=== PATIENT | female | born 1995 | race Hispanic/Latino ===

== ENCOUNTER 2024-02-12 16:18 | Emergency (ER) | payer BC, SELFPAY ==
--- NOTE | ~2024-02-12 | XR_ITS ---
EXAM: XR ankle LT min 3V DATE: 02/12/2024 16:54 HISTORY: pain x 2 weeks and today . COMPARISON: None available. FINDINGS: Normal mineralization. No fracture or dislocation. No lytic or blastic lesion. Joint space s are maintained. Mild Achilles and plantar enthesopathy No erosion or periosteal change. Soft tissue s within normal limits. IMPRESSION: No acute osseous finding in the left ankle. Reviewed, dictated and finalized at location K.
--- NOTE | ~2024-02-12 | XR_ITS ---
EXAM: XR knee LT min 4V DATE: 02/12/2024 16:53 HISTORY: fall 2 week ago and today. Pain . COMPARISON: None available. FINDINGS: Normal mineralization. No fracture or dislocation. No lytic or blastic lesion. Mild tricom partmental osteophytosis. Prior ACL repair with revision. Metallic fixation device over the tibial tu berosity possibly from tendon reattachment or repositioning that extends proud of the anterior cortex , this finding appears chronic. No erosion or periosteal change. Soft tissue swelling anterior to the patella and patellar tendon. IMPRESSION: Anterior soft tissue swelling, correlate for findings of tendinitis or patellar tendon in sorin. Metallic fixation device over the tibial tuberosity is not well seated against the anterior cortex, t his finding appears chronic. Correlation with postoperative radiographs would be helpful to confirm. Reviewed, dictated and finalized at location K. IMPRESSION: Anterior soft tissue swelling, correlate for findings of tendinitis or patellar tendon injury. Metallic fixation device over the tibial tuberosity is not well seated against the anterior cortex, this finding appears chronic. Correlation with postoperati ve radiographs would be helpful to confirm.
--- NOTE | 2024-02-12 16:24 | ED.LOWEXIN ---
HPI - Extremity Injury (Lower) General Chief Complaint: Extremity Injury, Lower Stated Complaint: left knee/ankle injury Time Seen by Provider: 02/12/24 16:36 Source: patient, RN notes reviewed and old records reviewed Mode of arrival: ambulatory Limitations: no limitations History of Present Illness HPI Narrative: 29-year-old female presents to the [facility] with complaints of left knee and left ankle pain. States that she fell 2 weeks ago, was not evaluated. Patient also reports that she fell today Patient most concerned for postsurgical changes to the left knee. States she had surgery at [facility]. Moderate to swelling noted. Related Data Home Medications Medication Instructions Recorded Confirmed ubrogepant 50 mg tablet (Ubrelvy) 50 mg PO DAILY PRN Migraine 02/12/24 02/12/24 Headache Allergies Allergy/AdvReac Type Severity Reaction Status Date / Time No Known Allergies Allergy Verified 02/12/24 16:20 Review of Systems Review of Systems: All systems reviewed & are unremarkable except as noted in HPI and below Constitutional: Constitutional: Reports no additional constitutional complaints Eyes: Eyes: Reports no additional eye complaints ENT: Reports system reviewed and no additional complaints, except as documented Cardiovascular: Cardiovascular: Reports no additional cardiovascular complaints, Denies chest pain and Denies dyspnea Respiratory: Respiratory: Reports no additional respiratory complaints, Denies chest congestion, Denies cough and Denies dyspnea Gastrointestinal: Gastrointestinal: Reports no additional gastrointestinal complaints, Denies abdominal pain, Denies nausea and Denies vomiting Musculoskeletal: Musculoskeletal: Reports as per HPI Integumentary/Breasts: Skin/Breast: Reports system reviewed and no additional complaints, except as docu Neurologic: Reports system reviewed and no additional complaints, except as documented Psychiatric: Psychiatric: Reports no additional psychiatric complaints Allergic/Immunologic: Allergic/Immunologic: Reports no additional allergic/immunologic complaints PMFSH Surgical History Surgical History History of repair of ACL x 2 left knee Comments At the time of my signature, I reviewed and agree with the nursing past medical, surgical, social, and family history. There is no relevant family history pertinent to the patient complaint. Exam Const: General: cooperative, healthy appearing, comfortable, no acute distress, well developed, alert and well nourished Nutritional Appearance: well nourished and obese Orientation/consciousness: patient oriented x3 Limitations: no limitations HENMT: Head: normal to inspection Ears: hearing grossly normal bilaterally and external ears normal Face/Nose/Sinus: Normal external nose present, Normal nares present, Normal nasal mucous membranes and turbinates present, normal facial exam and face symmetric Face and sinus: normal facial exam and face symmetric Eyes: General: appearance normal, both eyes and all related structures Alignment and Position: alignment normal Periorbital: periorbital findings normal Neck: Neck: normal visual inspection, full ROM, no lymphadenopathy and no meningeal signs Chest: Chest palpation & inspection: normal inspection of the chest Resp: Effort & Inspection: normal respiratory effort and able to speak in complete sentences Cardio: Rate: regular rate Rhythm: regular rhythm Skin: General skin exam: normal color and no rashes or lesions noted Lesions: no lesions Rashes: no rashes Trauma: no lacerations or abrasions Wounds: no wounds Neuro: General: patient oriented x3, gait normal, tone normal, moves all extremities and no meningeal signs Cranial nerves: Yes Equal, round and reactive pupils present Cognition (Neuro): normal cognition Speech: normal speech Gait exam (Neuro): Normal gait present Extrem: Ge
[2024-02-12 16:35] VITALS: BP 130/85; PULSE 90; RESP 18; TEMP 36.5; O2SAT 100
== END 2024-02-12 17:16 | disposition home or self-care (01) ==
PROVIDERS: Emergency Provider Nurse Practitioner; PCP Hospitalist
DX: S93.402A Sprain of unspecified ligament of left ankle, initial encounter (principal); S96.912A Strain of unspecified muscle and tendon at ankle and foot level, left foot, initial encounter; W19.XXXA Unspecified fall, initial encounter; M25.562 Pain in left knee; M25.462 Effusion, left knee
CPT/HCPCS: 73564; 73610; 99214; G0463

== ENCOUNTER 2024-12-13 13:55 | Emergency (ER) | payer OTHER, SELFPAY ==
[2024-12-13 14:04] VITALS: BP 121/83; PULSE 65; RESP 16; TEMP 36.8; O2SAT 100
--- NOTE | 2024-12-13 14:36 | ED.EYEPROB ---
HPI - Eye Problem General Chief complaint: Eye Problems Stated complaint: Eyes Irritation Time Seen by Provider: 12/13/24 14:25 Source: patient and RN notes reviewed Mode of arrival: ambulatory Limitations: no limitations History of Present Illness HPI Narrative: 29-year-old female presents [facility] complaining of right eye irritation. Patient states symptoms started yesterday. Patient believe she had a stye in her eyelid and stated that she attempted to pop it believe she irritated her eye in the process. Patient reports having watery and thick yellow discharge coming out of her right eye along with redness. Patient states she has a foreign body sensation in her right eye. Patient denies any pain but states that her eye does burn at times. Patient denies any vision changes, blurry vision, pain with eye movement. Patient is not were contacts patient does were glasses. Patient denies any upper respiratory symptoms, fevers, nausea, vomiting, headaches, or any other symptoms. Related Data Home Medications ?Medication ?Instructions ?Recorded ?Confirmed ?Last Taken ?Type ubrogepant 50 mg tablet (Ubrelvy) 50 mg PO DAILY PRN Migraine 02/12/24 02/12/24 Unknown History Headache Allergies Allergy/AdvReac Type Severity Reaction Status Date / Time No Known Allergies Allergy Verified 12/13/24 14:48 Review of Systems Review of Systems: CONSTITUTIONAL: Denies fever, chills, or sweats. EYES: Denies visual changes or blurry vision. Positive for redness, discharge. ENT: Denies rhinorrhea, congestion, sore throat, or otalgia. CARDIOVASCULAR: Denies chest pain, palpitations, or edema. RESPIRATORY: Denies cough or dyspnea. GASTROINTESTINAL: Denies abdominal pain, nausea, vomiting, or diarrhea. GENITOURINARY: Denies dysuria or hematuria. SKIN: Denies rash or itching. MUSCULOSKELETAL: Denies back pain, joint pain, or myalgia. NEUROLOGIC: Denies headache, numbness, or weakness. PSYCHIATRIC: Denies anxiety or depression. All other systems reviewed are negative, except as documented in HPI. [facility] Surgical History Surgical History History of repair of ACL x 2 left knee Comments At the time of my signature, I reviewed and agree with the nursing past medical, surgical, social, and family history. There is no relevant family history pertinent to the patient complaint. Exam Narrative: GENERAL: This is a well-nourished, well-developed adult, in no apparent distress. They are non ill-appearing, nontoxic appearing. Patient is obese. HEAD: normocephalic, atraumatic. EYES: Sclera clear/white bilaterally. Left Conjunctiva normal. Right conjunctiva injected. Watery discharge present. No foreign body visualized. Vision is grossly intact. Extraocular movements intact. Pupils PERRLA. No pain with eye movement. Bilateral upper and lower eyelids are normal, no evidence of stye. Right eye exam with Wood's lamp: No corneal abrasion, laceration, vitreous humor, foreign body, penetrating eye injury, herpetic lesions identified. No evidence of globe rupture. Wood's lamp exam is unremarkable. Eversion of right upper and lower eyelids with no retained foreign body. EARS: External ears normal, auditory canals clear and without drainage, Hearing grossly intact. NOSE: External nose normal with no obvious nasal discharge, nasal turbinates without redness, no rhinorrhea. THROAT: Mucous membranes moist, posterior pharynx clear, without erythema or swelling. Uvula midline. NECK: Neck supple, non-tender without lymphadenopathy, masses or thyromegaly. CARDIOVASCULAR: Regular rate and rhythm RESPIRATORY: Respiratory rate normal, respiratory effort nonlabored, no respiratory distress SKIN: warm, Dry, intact with no suspicious lesions or rash, good texture and turgor. NEURO: awake, alert, and oriented to person, place and time. There were no obvious focal neurologic abnormalities. EXTREMITIES: No joint tenderness, effusion, or edema noted. Course Course Emergency Course: Portions of this record may have been created with voice recognition software Level of Care: Express Care Visit Vital Signs Vital signs: Vital Signs Temperature 98.2 F 12/13/24 14:04 Pulse Rate 65 12/13/24 14:04 Respiratory Rate 16 12/13/24 14:04 Blood Pressure 121/83 12/13/24 14:04 Pulse Oximetry 100 12/13/24 14:04 Oxygen Delivery Room Air 12/13/24 14:04 Temperature 98.2 F 12/13/24 14:04 Pulse Rate 65 12/13/24 14:04 Respiratory Rate 16 12/13/24 14:04 Blood Pressure 121/83 12/13/24 14:04 Pulse Oximetry 100 12/13/24 14:04 Oxygen Delivery Room Air 12/13/24 14:04 Reviewed MDM - Eye Problem MDM Narrative Medical decision making narrative: No Evidence of corneal abrasion or any concerning findings on exam. Patient likely has a bacterial conjunctivitis. No evidence of stye the patient has been using warm compresses, it may be possible has already resolved. Will treat with polymyxin eye drops. Discussed physical exam findings. Advised supportive measures and signs/symptoms to go to the ER. Pt is appropriate for outpt treatment and f/u. Differential Diagnosis Differential diagnosis: Likely corneal abrasion, conjunctivitis and other (Stye) Critical Care Time Critical Care Time Critical Care Time: No Discharge Plan Discharge Clinical Impression: Conjunctivitis Qualifiers: Conjunctivitis type: acute Acute conjunctivitis type: bacterial Laterality: right Qualified Code(s): H10.31 - Unspecified acute conjunctivitis, right eye Patient Disposition: Home Condition: Stable Instructions: Antibiotic Form, How to Use Eye Drops (ED), Conjunctivitis (ED) Additional Instructions: Your exam today shows Conjunctivitis, You have been given a prescription for eye drops. Use the eye drops as instructed. Do not rub the eye or put anything else in the eye, this can cause abrasions (scratches) on the eye or lead to vision loss. Also it is important not to touch the tube or tip of drops to the eye, as this can cause further infection. Your eye exam did not show any evidence of corneal abrasion. Wash your hands very well before instilling the medication. Handwashing can help prevent the spread of disease. Follow up with PCP in 7-10 days Joan worsening redness, swelling, discharge, pain in your eye, vision changes, or any other concerns please go to the ER immediately. Contact [facility] if you need an Certified Hyperbaric Technician Patient Language: Ukrainian Prescriptions: New polymyxin B sulf-trimethoprim 10,000 unit- 1 mg/mL drops 1 drp RIGHT EYE Q3H 7 Days Qty: 10 0RF Rx Instructions: while awake; do not exceed 6 doses in 24 hours No Action Ubrelvy 50 mg tablet 50 mg PO DAILY PRN (Reason: Migraine Headache) Follow-up/Referrals: Reema,Esa Galvan Jr., MD [Primary Care Provider] - Time of Disposition: 14:57
[2024-12-13] MEDS: FLUORESCEIN SOD 1 MG/STRIP RIGHT EYE (15:03)
[2024-12-13] MEDS: TETRACAINE HCL 0.5% OPHTH SOLN 4 ML BTL RIGHT EYE (15:03)
[2024-12-13] MEDS: DACRIOSE EYE IRRIGATION 118 ML BOTTLE RIGHT EYE (15:04)
== END 2024-12-13 14:59 | disposition home or self-care (01) ==
PROVIDERS: PCP Hospitalist
DX: H10.31 Unspecified acute conjunctivitis, right eye (principal)
CPT/HCPCS: 99213; A9270; G0463